=== PATIENT | male | born 1965 | race Caucasian/White ===

== ENCOUNTER 2025-06-28 20:45 | Observation (INO) | payer OTHER ==
[2025-06-28] MEDS: SODIUM CHLORIDE 1,000 ML IV STA (22:45)
[2025-06-28 22:47] LABS: ABSOLUTE IMMATURE GRANULOCYTES 0.03 x10^3/uL (0.0-0.031); BASOPHILS # 0.07 x10^3/uL (0.01-0.08); EOSINOPHIL % 2.0 % (0.8-7.0); EOSINOPHILS # 0.15 x10^3/uL (0.04-0.54); MCHC 32.4 g/dl (32.3-36.5); MEAN CELL VOLUME 89.5 fl (79.0-92.2); MEAN PLT VOLUME 8.8 fl (9.4-12.4); MONOCYTE # 0.73 x10^3/uL (0.30-0.82); MONOCYTE % 10.0 % (5.3-12.2); RDW 13.1 % (12.2-16.4)
[2025-06-28 23:03] LABS: GLUCOSE,RANDOM 100.0 mg/dL (74-106); TOT PROT 6.9 g/dl (6.4-8.2)
[2025-06-28 23:04] LABS: CO2 27.0 mmol/L (21-32)
[2025-06-28 23:05] LABS: ALK PHOS 69.0 U/L (40-150)
[2025-06-28 23:08] LABS: SGOT/AST 30.0 U/L (5-34); SGPT/ALT 32.0 U/L (0-55)
[2025-06-28 23:09] LABS: CREATININE 1.0 mg/dL (0.55-1.3)
[2025-06-28] MEDS ORDERED: KETOROLAC TROMETHAMINE 15 MG/ML VIAL ONE (23:12)
[2025-06-28] MEDS: KETOROLAC TROMETHAMINE 15 MG/ML VIAL IVPUSH ONE (23:15)
[2025-06-28 23:29] LABS: HCV DIAGNOSTIC IN-HOUSE W/RFLX NON-REACTIVE (NONREACTIVE)
[2025-06-28 23:30] LABS: HIV INTERPRETATION NEGATIVE (NEGATIVE)
[2025-06-29] MEDS ORDERED: MORPHINE SULFATE 2 MG/ML SYRINGE ONE (02:21)
[2025-06-29 03:33] VITALS: BMI 27.3
[2025-06-29] MEDS: CEFTRIAXONE 1 GM in DEXTROSE 5%-WATER - 50 ML IVPB ONE (03:59)
[2025-06-29 04:12] LABS: EPI CELLS 24 /uL (0-25.1); HYALINE CASTS 3 /uL (0-3.1); URINE APPEARANCE Clear; URINE BACTERIA 62 /uL (0-1359); URINE BILIRUBIN Negative (NEGATIVE); URINE COLOR DK YELLOW; URINE GLUCOSE (UA) Negative (NEGATIVE); URINE KETONE Trace (NEGATIVE); URINE LEUK ESTERASE Negative (NEGATIVE); URINE NITRITE Negative (NEGATIVE); URINE PROTEIN 30 (NEGATIVE); URINE RBC 21 /uL (0-23.9); URINE UROBILINOGEN 1.0 mg/dL (0.2-1.0); URINE WBC 14 /uL (0-25.8)
[2025-06-29] MEDS: ACETAMINOPHEN 1000 MG/100 ML BAG IVPB PRN (04:39)
[2025-06-29 07:10] LABS: ABSOLUTE IMMATURE GRANULOCYTES 0.04 x10^3/uL (0.0-0.031); BASOPHILS # 0.07 x10^3/uL (0.01-0.08); EOSINOPHIL % 2.5 % (0.8-7.0); EOSINOPHILS # 0.21 x10^3/uL (0.04-0.54); MCHC 33.0 g/dl (32.3-36.5); MEAN CELL VOLUME 89.9 fl (79.0-92.2); MEAN PLT VOLUME 8.9 fl (9.4-12.4); MONOCYTE # 0.83 x10^3/uL (0.30-0.82); MONOCYTE % 9.9 % (5.3-12.2); RDW 13.0 % (12.2-16.4)
[2025-06-29] MEDS: SIMETHICONE 80 MG TAB.CHEW (FP) PO PRN (10:05)
[2025-06-29] MEDS: metroNIDAZOLE 500 MG PREMIXED 250 MG/50 ML MG IVPB SCH (10:31)
[2025-06-29] MEDS: GABAPENTIN 400 MG CAPSULE PO SCH (10:56)
[2025-06-29] MEDS: LOSARTAN POTASSIUM 50 MG TABLET PO SCH (10:56)
[2025-06-29] MEDS: POLYETHYLENE GLYCOL (HEALTHYLAX) 3350 17 GM PACKET PO ONE (10:57)
[2025-06-29 17:46] VITALS: RESP 18
[2025-06-30] MEDS: ONDANSETRON 4 MG/2 ML VIAL IVPUSH ONE (06:42)
[2025-06-30] MEDS: CEFTRIAXONE 1 GM in DEXTROSE 5%-WATER - 50 ML IVPB SCH (09:20)
[2025-06-30 09:25] LABS: INR 1.29 (0.83-1.09); PROTHROMBIN TIME (PATIENT) 14.1 SEC (9.7-13.0)
[2025-06-30 09:28] LABS: ACTIVATED PTT 28.5 SECONDS (25.2-36.5)
[2025-06-30 09:58] LABS: GLUCOSE,RANDOM 99.0 mg/dL (74-106)
[2025-06-30 09:59] LABS: CO2 28.0 mmol/L (21-32)
[2025-06-30 10:03] LABS: CREATININE 0.9 mg/dL (0.55-1.3)
[2025-06-30] MEDS: MAGNESIUM 1GM/D5W 100ML - 100 ML IVPB IVPB ONE (12:42)
[2025-06-30 21:46] VITALS: BP 103/78; PULSE 78; TEMP 97.9
== END 2025-06-30 20:45 | disposition home or self-care (01) ==
LOC: JER 20:45 → JERBED 06-29 01:08 → J7W 06-29 02:52
PROVIDERS: ADMIT Family Medicine; ATTEND Family Medicine
PROC: 3E03329 Introduction of Other Anti-infective into Peripheral Vein, Percutaneous Approach (ICD-10-PCS; principal; 2025-06-29)
PROC: 3E033NZ Introduction of Analgesics, Hypnotics, Sedatives into Peripheral Vein, Percutaneous Approach (ICD-10-PCS; 2025-06-29)
PROC: 3E0333Z Introduction of Anti-inflammatory into Peripheral Vein, Percutaneous Approach (ICD-10-PCS; 2025-06-29)
PROC: 3E033GC Introduction of Other Therapeutic Substance into Peripheral Vein, Percutaneous Approach (ICD-10-PCS; 2025-06-29)
DX: K52.9 Noninfective gastroenteritis and colitis, unspecified (principal); M19.90 Unspecified osteoarthritis, unspecified site; F11.20 Opioid dependence, uncomplicated; I10 Essential (primary) hypertension; G89.29 Other chronic pain; M51.86 Other intervertebral disc disorders, lumbar region; K57.92 Diverticulitis of intestine, part unspecified, without perforation or abscess without bleeding; R10.9 Unspecified abdominal pain
CPT/HCPCS: 36415; 74018-TC-FY; 74177-TC; 80048; 80053; 81003; 83690; 83735; 84100; 84484; 85025; 85610; 85651; 85730; 86140; 86803; 87389; 93005; 93010; 96361; 96365; 96366; 96367; 96368; 96375; 96376; 99285-25; G0378; Q9967